=== PATIENT | male | born 1995 | race Caucasian/White ===

== ENCOUNTER 2022-06-08 08:00 | Emergency (ER) | payer OTHER ==
[2022-06-08 08:10] VITALS: BP 126/78; PULSE 89; RESP 18; TEMP 98; BMI 25.1
[2022-06-08] MEDS ORDERED: DIPHTH,PERTUSS(ACELL),TET 0.5 ML DISP.SYRIN IM ONE ×2 (08:23→08:30)
== END 2022-06-08 08:42 | disposition home or self-care (01) ==
LOC: JERFT 08:00 → JER 08:00 → JERFT 08:42
PROC: 0HQFXZZ Repair Right Hand Skin, External Approach (ICD-10-PCS; principal; 2022-06-08)
PROC: 3E0234Z Introduction of Serum, Toxoid and Vaccine into Muscle, Percutaneous Approach (ICD-10-PCS; 2022-06-08)
DX: S61.202A Unspecified open wound of right middle finger without damage to nail, initial encounter (principal); W26.8XXA Contact with other sharp object(s), not elsewhere classified, initial encounter
CPT/HCPCS: 90715; 99282-25